=== PATIENT | female | born 1965 | race Caucasian/White ===

== ENCOUNTER 2021-04-25 01:49 | Emergency (ER) | payer MEDICAID ==
[~2021-04-25] VITALS: Ht 165.1 cm; Wt 91.3 kg
[2021-04-25 01:53] VITALS: BP 135/87
[2021-04-25] MEDS: LORazepam 1 MG tablet PO ONE ×2 (02:30→02:55)
[2021-04-25] MEDS ORDERED: diphenhydrAMINE 50 mg/ml inj IM ONE (02:55)
[2021-04-25] MEDS ORDERED: LORazepam 2 mg/ml vial IM ONE (02:55)
[2021-04-25] MEDS ORDERED: haloperidol lactate 5mg/ml inj IM ONE (02:55)
--- NOTE | 2021-04-25 03:04 | NUR ---
PT EXITED ROOM, WALKED OVER TO THE NURSES STATION AND OVER TO THE HEEL PRICKER AND GRABBED HER SHIRT AND BADGE AND YELLED, "LET ME SEE YOUR BADGE, I NEED YOUR NAME" - PT WAS TOLD THIS WAS NOT OK AND TO RETURN TO HER ROOM. SHE REFUSED TO LEAVE THE NURSES STATION AND SECURITY WAS CALLED. AWARE, PT PLACED ON 5150 AND MEDICATIONS ORDERED.
[2021-04-25] MEDS ORDERED: LORazepam 0.5 MG tablet PO STA (03:34)
--- NOTE | 2021-04-25 03:41 | NUR ---
PCT negotiated with pt to have female staff member assist in changing into scrubs. Pt was cooperative with female nurse, answered questions appropriately, and allowed blood to be drawn. Pt was offered and accepted 0.5 mg of ativan to help with anxiety. Pt given warm blanket, and lights turned low. Pt now resting.
[2021-04-25 03:43] LABS: BASOPHILS # (AUTO) 0.1 X10'3 (0-0.2); BASOPHILS % (AUTO) 0.5 % (0-1); EOSINOPHILS # (AUTO) 0.2 X10'3 (0-0.9); HEMATOCRIT 39.8 % (35.0-45.0); HEMOGLOBIN 13.2 g/dl (12.0-16.0); LYMPHOCYTES % (AUTO) 27.6 % (21-51); MEAN CORPUSCULAR HEMOGLOBIN 30.4 PG (27.0-31.0); MEAN CORPUSCULAR HGB CONC 33.2 g/dL (33.0-36.5); MEAN CORPUSCULAR VOLUME 91.7 FL (78-98); MEAN PLATELET VOLUME 10.8 FL (7.4-10.4); NEUTROPHILS # (AUTO) 6.6 X10'3 (1.8-7.7); NEUTROPHILS % (AUTO) 60.9 % (42-75); PLATELET COUNT 251 X10'3 (140-440); RED BLOOD COUNT 4.34 X10'6 (4.20-5.60); RED CELL DISTRIBUTION WIDTH 13.8 % (11.5-14.5); WHITE BLOOD COUNT 10.8 X10'3 (4.5-11.0)
--- NOTE | 2021-04-25 03:45 | NUR ---
Pt does not remember her medications or dosages. [facility] and not available to external access.
[2021-04-25 03:51] LABS: ALBUMIN 3.6 G/DL (3.4-5.0); ANION GAP 9 (8-16); BLOOD UREA NITROGEN 18 MG/DL (7-18); BUN/CREATININE RATIO 19.6 (6.6-38.0); CALCIUM 8.5 MG/DL (8.5-10.1); CHLORIDE 109 MMOL/L (99-107); CREATININE 0.92 MG/DL (0.40-0.90); GLUCOSE 107 MG/DL (70-104); POTASSIUM 3.8 MMOL/L (3.5-5.1); SODIUM 144 MMOL/L (135-145); TOTAL CARBON DIOXIDE 26.2 MMOL/L (24-32); eGFR 64 ML/MIN
[2021-04-25] MEDS ORDERED: benzocaine/menthol oral lozeng 1 EACH BOX MM PRN (06:05)
[2021-04-25 06:42] LABS: CLARITY,URINE CLEAR (Clear); COLOR,URINE YELLOW (Yellow); GLUCOSE, URINE NEGATIVE (Neg); KETONES,URINE NEGATIVE (Neg); LEUKOCYTE ESTERASE ,URINE NEGATIVE (Neg); NITRITES, URINE NEGATIVE (Neg); OCCULT BLOOD,URINE NEGATIVE (Neg); PROTEIN,URINE NEGATIVE (Neg); UA COLLECTION TYPE CLN CATCH MIDSTREAM; UROBILINOGEN,URINE 0.2 E.U/dL (0.2-1.0)
--- NOTE | 2021-04-25 09:03 | NUR ---
Patient is sitting up at bedside eating breakfast. She is cooperative with staff at this moment. Further mental health eval needed as time permits. No sitter available to eval this patient.
--- NOTE | 2021-04-25 09:25 | NUR ---
We are awaiting a urine sample on this patient. The [facility] office has all other paperwork.
[2021-04-25 09:40] LABS: URINE HCG NEGATIVE (NEG)
[2021-04-25 09:53] LABS: URINE AMPHETAMINE SCREEN NEGATIVE (Neg); URINE BARBITUATE SCREEN NEGATIVE (Neg); URINE BENZODIAZEPINES SCREEN NEGATIVE (Neg); URINE CANNABINOID SCREEN NEGATIVE (Neg); URINE COCAINE SCREEN NEGATIVE (Neg); URINE METHADONE SCREEN NEGATIVE (Neg); URINE OPIATE SCREEN NEGATIVE (Neg); URINE PHENCYCLIDINE SCREEN NEGATIVE (Neg)
[2021-04-25] MEDS ORDERED: LORazepam 1 MG tablet PO PRN (10:50)
== END 2021-04-25 11:42 | disposition home or self-care (01) ==
LOC: ER 01:50
DX: F32.9 Major depressive disorder, single episode, unspecified (principal); Z20.822 Contact with and (suspected) exposure to COVID-19; R41.0 Disorientation, unspecified; R45.851 Suicidal ideations; F41.9 Anxiety disorder, unspecified; F43.10 Post-traumatic stress disorder, unspecified; F17.200 Nicotine dependence, unspecified, uncomplicated; Z88.8 Allergy status to other drugs, medicaments and biological substances
CPT/HCPCS: 36415; 80048; 80305; 81003; 81025; 85025; 87635; 99285; C9803